=== PATIENT | male | born 1940 | race Caucasian/White ===

== ENCOUNTER 2022-07-22 07:17 | Day surgery (SDC) | payer MEDICARE, BC ==
[~2022-07-22 07:17] MED LIST: Lactated Ringers 1,000 ML IV SCH; Lidocaine 1% 5 ML VIAL ONE; Lidocaine 1%/Sod Bicarbonate in NS 8.4% 1 ML Syringe IDERM PRN; Morphine 8 MG, EPINEPHrine 0.3 MG, Cefuroxime 750 MG, Ketorolac 30 MG, Sodium Chloride ... PRN; Propofol 200 MG/20 ML SDV ONE; Sodium Chloride 0.9% 10 ML Syringe FLUSH PRN; Sodium Chloride 0.9% 10 ML Syringe FLUSH SCH; ceFAZolin 2 GM Vial ONE; fentaNYL 100 MCG/2 ML SDV ONE
[2022-07-22] MEDS ORDERED: ceFAZolin 2 GM Vial ONE (07:57)
[2022-07-22] MEDS ORDERED: Ropivacaine 0.5% 5 MG/ML 30 ML SDV ONE (07:59)
[2022-07-22] MEDS ORDERED: EPINEPHrine 1 MG/ML SDV ONE (07:59)
[2022-07-22] MEDS ORDERED: Dexmedetomidine 200 MCG/2 ML SDV ONE (08:02)
[2022-07-22] MEDS ORDERED: Dexamethasone 4 MG/ML 5 ML MDV ONE (08:04)
[2022-07-22] MEDS: Morphine 8 MG, EPINEPHrine 0.3 MG, Cefuroxime 750 MG, Ketorolac 30 MG, Sodium Chloride ... PRN ×10 (08:16→10:25)
[2022-07-22] MEDS: Tranexamic Acid 1,000 MG/10 ML Vial ONE ×2 (08:16→10:35)
[2022-07-22] MEDS: Vancomycin 1 GM SDV ONE ×2 (08:16→10:35)
[2022-07-22] MEDS ORDERED: Midazolam 1 MG/ML 2 ML SDV ONE (08:23)
[2022-07-22] MEDS ORDERED: HYDROmorphone 0.5 MG/0.5 ML Syringe IVPUSH PRN (09:24)
[2022-07-22] MEDS ORDERED: Ondansetron 4 MG/2 ML SDV IVPUSH PRN (09:24)
[2022-07-22] MEDS ORDERED: fentaNYL 100 MCG/2 ML SDV IVPUSH PRN (09:24)
[2022-07-22] MEDS ORDERED: ePHEDrine 50 MG/ML SDV ONE (09:25)
[2022-07-22] MEDS ORDERED: Phenylephrine HCl In 0.9% NaCl 1 MG/10 ML Vial ONE (09:52)
[2022-07-22] MEDS ORDERED: Propofol 200 MG/20 ML SDV ONE (10:35)
[2022-07-22] MEDS ORDERED: Ketorolac 15 MG/ML SDV ONE (10:52)
== END 2022-07-22 13:48 | disposition home or self-care (01) ==
LOC: JD.SDS 07:17
PROVIDERS: ATTEND Orthopaedic Surgery
DX: M17.12 Unilateral primary osteoarthritis, left knee (principal); G89.29 Other chronic pain; Z79.899 Other long term (current) drug therapy; E03.9 Hypothyroidism, unspecified; F32.A Depression, unspecified; M10.9 Gout, unspecified; Z87.891 Personal history of nicotine dependence; Z79.890 Hormone replacement therapy
CPT/HCPCS: 0055T; 27447; 64447; 73560; 97110; 97161; C1713; C1776; J0171; J0690; J0697; J1100; J1885; J2250; J2270; J2704; J2795; J3010; J3370; J7120; 01402; 99100; J3490

== ENCOUNTER 2022-07-23 20:13 | Emergency (ER) | payer MEDICARE, BC ==
[2022-07-23] MEDS ORDERED: Orphenadrine 100 MG Tab.ER PO ONE (20:54)
== END 2022-07-23 23:05 | disposition home or self-care (01) ==
LOC: JD.ED 20:13
DX: G89.18 Other acute postprocedural pain (principal); M79.605 Pain in left leg; I10 Essential (primary) hypertension; E03.9 Hypothyroidism, unspecified; E66.9 Obesity, unspecified; Z68.37 Body mass index [BMI] 37.0-37.9, adult; Z79.82 Long term (current) use of aspirin; Z79.899 Other long term (current) drug therapy
CPT/HCPCS: 93971-26-LT; 93971-LT; 99283; A9270-GY

== ENCOUNTER 2022-11-07 06:05 | Day surgery (SDC) | payer MEDICARE, BC ==
[~2022-11-07 06:05] MED LIST changes: -Lidocaine 1% 5 ML VIAL ONE; -Lidocaine 1%/Sod Bicarbonate in NS 8.4% 1 ML Syringe IDERM PRN; -Propofol 200 MG/20 ML SDV ONE; -ceFAZolin 2 GM Vial ONE; -fentaNYL 100 MCG/2 ML SDV ONE
[2022-11-07] MEDS ORDERED: Tranexamic Acid 1,000 MG/10 ML Vial ONE (06:11)
[2022-11-07] MEDS ORDERED: Bupivacaine 0.5% 30 ML SDV ONE ×2 (06:11→08:08)
[2022-11-07] MEDS ORDERED: Vancomycin 1 GM SDV ONE (06:11)
[2022-11-07] MEDS ORDERED: Bupivacaine 0.25% 10 ML SDV ONE (06:14)
[2022-11-07] MEDS ORDERED: fentaNYL 100 MCG/2 ML SDV ONE (07:05)
[2022-11-07] MEDS ORDERED: Propofol 200 MG/20 ML SDV ONE (07:06)
[2022-11-07] MEDS ORDERED: ceFAZolin 2 GM Vial ONE (07:11)
[2022-11-07] MEDS ORDERED: Lidocaine 1% 5 ML VIAL ONE (07:43)
[2022-11-07] MEDS ORDERED: Ropivacaine 0.5% 5 MG/ML 30 ML SDV ONE (08:10)
[2022-11-07] MEDS ORDERED: Dexmedetomidine 200 MCG/2 ML SDV ONE (08:13)
[2022-11-07] MEDS ORDERED: EPINEPHrine 1 MG/ML SDV ONE (08:17)
[2022-11-07] MEDS ORDERED: fentaNYL 100 MCG/2 ML SDV IVPUSH PRN (08:24)
[2022-11-07] MEDS ORDERED: HYDROmorphone 0.5 MG/0.5 ML Syringe IVPUSH PRN (08:24)
[2022-11-07] MEDS ORDERED: ePHEDrine 50 MG/ML SDV ONE (08:37)
[2022-11-07] MEDS ORDERED: Dexamethasone 4 MG/ML 5 ML MDV ONE (09:38)
[2022-11-07] MEDS ORDERED: Acetaminophen/HYDROcodone 325-5 MG Tab PO ONE (11:40)
== END 2022-11-07 12:38 | disposition home or self-care (01) ==
LOC: JD.SDS 06:05
PROVIDERS: ATTEND Orthopaedic Surgery
DX: M23.672 Other spontaneous disruption of capsular ligament of left knee (principal); S83.015A Lateral dislocation of left patella, initial encounter; M10.9 Gout, unspecified; E11.22 Type 2 diabetes mellitus with diabetic chronic kidney disease; I12.9 Hypertensive chronic kidney disease with stage 1 through stage 4 chronic kidney disease, or unspecified chronic kidney disease; N18.9 Chronic kidney disease, unspecified; M19.90 Unspecified osteoarthritis, unspecified site; F32.A Depression, unspecified; E03.9 Hypothyroidism, unspecified; E66.9 Obesity, unspecified; Z79.890 Hormone replacement therapy; Z79.899 Other long term (current) drug therapy; Z96.652 Presence of left artificial knee joint; Z87.891 Personal history of nicotine dependence; Z79.82 Long term (current) use of aspirin; Z68.37 Body mass index [BMI] 37.0-37.9, adult
CPT/HCPCS: 27405; 64447; 73560; 97161; A9270; J0171; J0690; J0697; J1100; J1885; J2270; J2704; J2795; J3010; J3370; J3490; J7120; 01400; 64417; 99100